=== PATIENT | male | born 1950 | race Hispanic/Latino ===

== ENCOUNTER 2023-03-04 18:00 | Observation (INO) | payer MEDICARE ==
[~2023-03-04] VITALS: Ht 170.2 cm; Wt 82.7 kg
[2023-03-04 13:46] VITALS: BP 145/66; PULSE 70; RESP 15
[2023-03-04 14:01] LABS: BASOPHILS # (AUTO) 0.04 K/uL (0.00-0.20); BASOPHILS % (AUTO) 0.5 % (0.0-5.0); EOSINOPHILS % (AUTO) 6.6 % (0.0-8.0); HEMATOCRIT 29.4 % (42-54); IMMATURE GRANULOCYTE ABSOLUTE 0.07 K/uL (0-1); LYMPHOCYTES # (AUTO) 1.8 K/uL (1.0-4.8); LYMPHOCYTES % (AUTO) 23.5 % (21.0-51.0); MEAN CORPUSCULAR HEMOGLOBIN 27.8 pg (27.0-33.0); MEAN CORPUSCULAR HGB CONC 31.3 g/dL (32.0-36.0); MEAN CORPUSCULAR VOLUME 88.8 fL (79-99); MONOCYTES # (AUTO) 0.7 K/uL (0.1-1.0); MONOCYTES % (AUTO) 8.6 % (3.0-13.0); NEUTROPHILS # (AUTO) 4.5 K/uL (1.8-7.7); NEUTROPHILS % (AUTO) 59.9 % (40.0-77.0); NUCLEATED RED BLOOD CELLS 0.5 % (0.0-0.19); PLATELET COUNT (AUTO) 323 K/uL (130-400); RED BLOOD CELL COUNT(AUTO) 3.31 MIL/uL (4.50-6.20); RED CELL DISTRIBUTION WIDTH 17.1 % (11.0-15.5); WHITE BLOOD COUNT (AUTO) 7.5 K/uL (4.8-10.8)
[2023-03-04 14:15] LABS: CREATININE 2.3 mg/dL (0.5-1.5); POTASSIUM 5.8 mmol/L (3.5-5.1)
[2023-03-04] MEDS ORDERED: SODI650T PO (18:22)
[2023-03-04] MEDS ORDERED: FOLIC ACID PO (18:22)
[2023-03-04] MEDS ORDERED: INSU100I26 SQ (18:22)
[2023-03-04] MEDS ORDERED: HYDR-3420 PO (18:22)
[2023-03-04] MEDS ORDERED: METO-391 PO (18:22)
[2023-03-04] MEDS ORDERED: FOLI1TAB85 PO (18:22)
[2023-03-04] MEDS ORDERED: AMLO-258 PO (18:22)
[2023-03-04] MEDS ORDERED: LISI40TA9 PO (18:22)
[2023-03-04] MEDS ORDERED: PRAV40TA3 PO (18:22)
[2023-03-04] MEDS ORDERED: CART1TAB5 PO (18:25)
[2023-03-04] MEDS ORDERED: MULT1CAP17 PO (18:25)
[2023-03-04] MEDS ORDERED: TURM500T PO (18:25)
[2023-03-04] MEDS ORDERED: LEVO50CA4 PO (18:25)
[2023-03-04] MEDS ORDERED: KRILL OIL PO (18:25)
[2023-03-04] MEDS ORDERED: FURO20TA4 PO (18:25)
[2023-03-04] MEDS ORDERED: CYAN-35 PO (18:25)
[2023-03-04] MEDS ORDERED: GABA-529 PO (18:25)
[2023-03-04] MEDS ORDERED: VITA0.4T20 PO (18:25)
[2023-03-04] MEDS ORDERED: ZINC50TA15 PO (18:25)
[2023-03-09] VITALS (27 sets, daily range): BP systolic 123–155; BP diastolic 38–67; PULSE 61–76; RESP 12–19; O2SAT 98
[2023-03-09] MEDS ORDERED: CEFAZOLIN SODIUM 2 GM VIAL ONE (06:07)
[2023-03-09] MEDS ORDERED: 0.9%NACL 1000ML 1,000 ML IV ONE (06:07)
[2023-03-09 06:40] LABS: POTASSIUM 5.3 mmol/L (3.5-5.1)
[2023-03-09] MEDS ORDERED: 0.9%NACL 100ML 48.45 ML, ROPIVACAINE 0.5% 5MG/ML 30ML 246.25 MG, KETOROLAC TROMETHAMINE... IV PRN ×5 (07:30)
[2023-03-09] MEDS ORDERED: TRANEXAMIC ACID 1000MG/10ML ONE (09:36)
[2023-03-09] MEDS ORDERED: GENTAMICIN SULFATE 80 MG/2 ML VIAL ONE (09:36)
[2023-03-09] MEDS ORDERED: CEFAZOLIN SODIUM 1 GM VIAL ONE (09:36)
[2023-03-09] MEDS ORDERED: CLOP75TA32 PO (09:56)
[2023-03-09] MEDS ORDERED: LIDOCAINE PF 100MG/5ML (2%) SYRINGE 5ML ONE (10:17)
[2023-03-09] MEDS ORDERED: MIDAZOLAM HCL 1 MG/ML 2ML VIAL ONE (10:18)
[2023-03-09] MEDS ORDERED: FENTANYL CITRATE PF 50 MCG/1 ML 2ML VIAL ONE (10:18)
[2023-03-09] MEDS ORDERED: PROPOFOL 10 MG/ML 20ML VIAL IV ONE ×3 (10:18→11:28)
[2023-03-09] MEDS ORDERED: CEFAZOLIN SODIUM 2 GM VIAL IVPB ONE ×2 (10:36→10:37)
[2023-03-09] MEDS ORDERED: PHENYLEPHRINE HCL 10 MG/ML 1ML VIAL IV ONE (10:36)
[2023-03-09] MEDS ORDERED: TRANEXAMIC ACID 1000MG/10ML IV ONE (10:39)
[2023-03-09] MEDS ORDERED: DEXAMETHASONE SOD PHOSPHATE 10MG/ML 1ML VIAL ONE (11:01)
[2023-03-09] MEDS ORDERED: ONDANSETRON 4MG INJ ONE (11:01)
[2023-03-09] MEDS: 0.9%NACL 1000ML 1,000 ML IV SCH (14:29)
[2023-03-09] MEDS ORDERED: ONDANSETRON 4MG INJ IVP PRN (14:30)
[2023-03-09] MEDS ORDERED: DIPHENOXYLATE HCL/ATROPINE 2.5/0.025 MG TAB PO PRN (14:30)
[2023-03-09] MEDS ORDERED: WARFARIN SODIUM 7.5 MG TAB PO SCH (14:30)
[2023-03-09] MEDS ORDERED: ACETAMINOPHEN 325 MG TAB PO SCH (14:30)
[2023-03-09] MEDS ORDERED: HYDROMORPHONE PCA 10 MG/50 ML 50 ML IV PRN (14:30)
[2023-03-09] MEDS ORDERED: MAG/ALUM/SIMETH 30 ML UDCUP PO PRN (14:30)
[2023-03-09] MEDS ORDERED: DIPHENHYDRAMINE HCL 25 MG CAPSULE PO SCH (14:30)
[2023-03-09] MEDS ORDERED: BENZOCAINE/MENTH/CETYLPYRD CL 1 EACH LOZENGE MM PRN (14:30)
[2023-03-09] MEDS ORDERED: ACETAMINOPHEN 325 MG TAB PO PRN ×2 (14:30)
[2023-03-09] MEDS ORDERED: DIPHENHYDRAMINE HCL 25 MG CAPSULE PO PRN (14:30)
[2023-03-09] MEDS ORDERED: LACTULOSE 20 GM/30 ML UDCUP PO PRN (14:30)
[2023-03-09] MEDS ORDERED: CEFAZOLIN SODIUM 2 GM VIAL IVPB SCH ×2 (14:30→17:30)
[2023-03-09] MEDS: TRAMADOL HCL 50 MG TABLET PO PRN (14:33)
[2023-03-09] MEDS: CEFAZOLIN SODIUM 3 GM in DEXTROSE 5%-WATER 100 ML IVPB SCH (18:39)
[2023-03-09] MEDS: INSULIN GLARGINE 100 UNITS/ML 10 ML VIAL SQ SCH (20:30)
[2023-03-09] MEDS: HYDRALAZINE HCL 10 MG TABLET PO SCH (20:31)
[2023-03-09] MEDS: GABAPENTIN 100 MG CAPSULE PO SCH (20:31)
[2023-03-09] MEDS: FUROSEMIDE 20 MG TABLET PO SCH (20:31)
[2023-03-09] MEDS: ATORVASTATIN 10 MG TABLET PO SCH (20:31)
[2023-03-09] MEDS: SODIUM BICARBONATE 650 MG TAB PO SCH (20:31)
[2023-03-09] MEDS ORDERED: [UNRECOGNIZED DRUG - OTHER] SQ SCH (21:00)
[2023-03-09] MEDS ORDERED: INSULIN GLARGINE HUM REC ANLOG SQ SCH (21:00)
[2023-03-09] MEDS ORDERED: NON-FORMULARY MEDICATION 1 EACH (Pravastatin Sodium 40 MG) PO SCH (21:00)
[2023-03-10] MEDS: 0.9%NACL 1000ML 1,000 ML IV SCH ×3 (00:27→20:29)
[2023-03-10] MEDS: CEFAZOLIN SODIUM 3 GM in DEXTROSE 5%-WATER 100 ML IVPB SCH (02:00)
[2023-03-10 03:50] LABS: HEMATOCRIT 25.5 % (42-54); MEAN CORPUSCULAR HEMOGLOBIN 27.6 pg (27.0-33.0); MEAN CORPUSCULAR VOLUME 89.2 fL (79-99); PLATELET COUNT (AUTO) 195 K/uL (130-400); RED BLOOD CELL COUNT(AUTO) 2.86 MIL/uL (4.50-6.20); RED CELL DISTRIBUTION WIDTH 17.3 % (11.0-15.5); WHITE BLOOD COUNT (AUTO) 8.5 K/uL (4.8-10.8)
[2023-03-10 04:05] LABS: INR 1.09 (0.85-1.15); PROTHROMBIN TIME 12.6 SEC (9.6-11.6)
[2023-03-10 04:07] LABS: CREATININE 2.1 mg/dL (0.5-1.5); POTASSIUM 5.8 mmol/L (3.5-5.1)
[2023-03-10 04:09] VITALS: BP 139/55; PULSE 69; RESP 18
[2023-03-10] MEDS: LEVOTHYROXINE 50 MCG TABLET PO SCH (05:33)
[2023-03-10] MEDS ORDERED: NON-FORMULARY MEDICATION 1 EACH (Levothyroxine Sodium (Levothyroxine) 50 MCG) PO SCH (07:30)
[2023-03-10 07:57] VITALS: BP 138/58; PULSE 62; RESP 19
[2023-03-10 08:20] VITALS: O2SAT 98
[2023-03-10] MEDS: AMLODIPINE 5 MG TAB PO SCH (09:00)
[2023-03-10] MEDS: TURMERIC ROOT EXTRACT 1000 MG PO SCH (09:00)
[2023-03-10] MEDS: HYDRALAZINE HCL 10 MG TABLET PO SCH ×3 (09:00→20:28)
[2023-03-10] MEDS ORDERED: NON-FORMULARY MEDICATION 1 EACH (Amlodipine Besylate 10 MG) PO SCH (09:00)
[2023-03-10] MEDS: SODIUM BICARBONATE 650 MG TAB PO SCH ×3 (10:44→20:28)
[2023-03-10] MEDS: METOPROLOL SUCCINATE 50 MG TAB.SR.24H PO SCH (10:44)
[2023-03-10] MEDS: GABAPENTIN 100 MG CAPSULE PO SCH ×3 (10:45→20:28)
[2023-03-10] MEDS: CLOPIDOGREL 75MG TAB PO SCH (10:45)
[2023-03-10 11:02] LABS: ALBUMIN 3.2 g/dL (3.5-5.0); BILIRUBIN,TOTAL 0.4 mg/dL (0.2-1.0); MAGNESIUM 1.9 mg/dL (1.80-2.40); TOTAL PROTEIN, SERUM 6.1 g/dL (6.0-8.3)
[2023-03-10 11:29] VITALS: BP 121/59; PULSE 70; RESP 19
[2023-03-10] MEDS: INSULIN HUMULIN R 100 UNIT/ML 3ML SQ SCH ×3 (11:50→20:29)
[2023-03-10] MEDS: LISINOPRIL 40 MG TABLET PO SCH (12:00)
[2023-03-10 12:01] LABS: ABG OXYGEN SATURATION 98.7 % (95.0-99.0); BASE EXCESS,VENOUS BLOOD GAS -9.9 (-2.0-3.0); HCO3,VENOUS BLOOD GAS 14.4 (21.0-28.0); PCO2,VENOUS BLOOD GAS 28 (32-45); PH,VENOUS BLOOD GAS 7.324 (7.350-7.450); PO2,VENOUS BLOOD GAS 143.7 mmHg (35.0-45.0)
[2023-03-10] MEDS ORDERED: SODIUM BICARB 50MEQ 50ML VIAL IV ONE (13:00)
[2023-03-10] MEDS: TRAMADOL HCL 50 MG TABLET PO PRN (13:32)
[2023-03-10 15:20] VITALS: BP 165/56; PULSE 71; RESP 19
[2023-03-10] MEDS ORDERED: HYDRALAZINE 20MG/ML VIAL IV PRN (16:00)
[2023-03-10 18:14] LABS: HEMATOCRIT 29.1 % (42-54); MEAN CORPUSCULAR HEMOGLOBIN 28.1 pg (27.0-33.0); MEAN CORPUSCULAR HGB CONC 31.3 g/dL (32.0-36.0); MEAN CORPUSCULAR VOLUME 89.8 fL (79-99); RED BLOOD CELL COUNT(AUTO) 3.24 MIL/uL (4.50-6.20); RED CELL DISTRIBUTION WIDTH 17.2 % (11.0-15.5); WHITE BLOOD COUNT (AUTO) 8.1 K/uL (4.8-10.8)
[2023-03-10 18:34] LABS: CREATININE 2.3 mg/dL (0.5-1.5); POTASSIUM 5.7 mmol/L (3.5-5.1)
[2023-03-10 18:40] LABS: ALBUMIN 3.2 g/dL (3.5-5.0); BILIRUBIN,TOTAL 1.2 mg/dL (0.2-1.0); MAGNESIUM 1.9 mg/dL (1.80-2.40); TOTAL PROTEIN, SERUM 6.3 g/dL (6.0-8.3)
[2023-03-10 20:00] VITALS: BP 139/48; PULSE 82; RESP 20; O2SAT 97
[2023-03-10] MEDS: FUROSEMIDE 20 MG TABLET PO SCH (20:28)
[2023-03-10] MEDS: ATORVASTATIN 10 MG TABLET PO SCH (20:28)
[2023-03-10] MEDS ORDERED: SODIUM ZIRCONIUM CYCLOSILICATE 5 GM POWD.PACK PO SCH (20:30)
[2023-03-10] MEDS: INSULIN GLARGINE 100 UNITS/ML 10 ML VIAL SQ SCH (20:33)
[2023-03-11] VITALS: BP 137/57; PULSE 87; RESP 18
[2023-03-11 03:39] LABS: BASOPHILS # (AUTO) 0.01 K/uL (0.00-0.20); BASOPHILS % (AUTO) 0.2 % (0.0-5.0); EOSINOPHILS # (AUTO) 0.13 K/uL (0.00-0.70); EOSINOPHILS % (AUTO) 2.1 % (0.0-8.0); HEMATOCRIT 28.1 % (42-54); IMMATURE GRANULOCYTE ABSOLUTE 0.02 K/uL (0-1); LYMPHOCYTES # (AUTO) 0.9 K/uL (1.0-4.8); LYMPHOCYTES % (AUTO) 14.9 % (21.0-51.0); MEAN CORPUSCULAR HEMOGLOBIN 28.1 pg (27.0-33.0); MEAN CORPUSCULAR HGB CONC 31.7 g/dL (32.0-36.0); MEAN CORPUSCULAR VOLUME 88.6 fL (79-99); MONOCYTES # (AUTO) 0.9 K/uL (0.1-1.0); MONOCYTES % (AUTO) 14.8 % (3.0-13.0); NEUTROPHILS # (AUTO) 4.2 K/uL (1.8-7.7); NEUTROPHILS % (AUTO) 67.7 % (40.0-77.0); PLATELET COUNT (AUTO) 153 K/uL (130-400); RED BLOOD CELL COUNT(AUTO) 3.17 MIL/uL (4.50-6.20); RED CELL DISTRIBUTION WIDTH 17.4 % (11.0-15.5); WHITE BLOOD COUNT (AUTO) 6.2 K/uL (4.8-10.8)
[2023-03-11 03:52] LABS: BILIRUBIN,TOTAL 0.9 mg/dL (0.2-1.0); CREATININE 1.9 mg/dL (0.5-1.5); MAGNESIUM 1.7 mg/dL (1.80-2.40); POTASSIUM 4.7 mmol/L (3.5-5.1)
[2023-03-11 04:00] VITALS: BP 142/40; PULSE 74; RESP 18
[2023-03-11] MEDS: 0.9%NACL 1000ML 1,000 ML IV SCH ×2 (05:03→17:04)
[2023-03-11] MEDS: LEVOTHYROXINE 50 MCG TABLET PO SCH (05:03)
[2023-03-11] MEDS: INSULIN HUMULIN R 100 UNIT/ML 3ML SQ SCH ×4 (05:57→21:22)
[2023-03-11 08:00] VITALS: BP 134/55; PULSE 69; RESP 19; O2SAT 99
[2023-03-11] MEDS: TURMERIC ROOT EXTRACT 1000 MG PO SCH (09:00)
[2023-03-11] MEDS: SODIUM BICARBONATE 650 MG TAB PO SCH ×3 (09:18→20:31)
[2023-03-11] MEDS: AMLODIPINE 5 MG TAB PO SCH (09:18)
[2023-03-11] MEDS: METOPROLOL SUCCINATE 50 MG TAB.SR.24H PO SCH (09:18)
[2023-03-11] MEDS: CLOPIDOGREL 75MG TAB PO SCH (09:18)
[2023-03-11] MEDS: TRAMADOL HCL 50 MG TABLET PO PRN (09:19)
[2023-03-11] MEDS: HYDRALAZINE HCL 10 MG TABLET PO SCH ×3 (09:19→20:32)
[2023-03-11] MEDS: GABAPENTIN 100 MG CAPSULE PO SCH ×3 (09:20→20:31)
[2023-03-11 12:00] VITALS: BP 139/48; PULSE 69; RESP 19
[2023-03-11] MEDS ORDERED: MAGNESIUM 2GM PREMIX 50ML 50 ML IV PRN (12:00)
[2023-03-11] MEDS: LISINOPRIL 40 MG TABLET PO SCH (12:22)
[2023-03-11 16:00] VITALS: BP 161/62; PULSE 74; RESP 19
[2023-03-11] MEDS ORDERED: MAGNESIUM 2GM PREMIX 50ML 50 ML IV SCH (16:00)
[2023-03-11 16:10] LABS: ABG BASE EXCESS -5.5 mmol/L (-2.0-3.0); ABG HCO3 19.3 mmol/L (21.0-28.0); ABG OXYGEN SATURATION 88.5 % (95.0-99.0); ABG PCO2 36 mmHg (35-48); ABG PH 7.351 (7.35-7.450); PO2, ARTERIAL BG 56.7 mmHg (83.0-108.0); VENT MODE, BG RA (ROOM AIR)
[2023-03-11 20:00] VITALS: BP 140/50; PULSE 75; RESP 20
[2023-03-11] MEDS: FUROSEMIDE 20 MG TABLET PO SCH (20:31)
[2023-03-11] MEDS: ATORVASTATIN 10 MG TABLET PO SCH (20:31)
[2023-03-11] MEDS: INSULIN GLARGINE 100 UNITS/ML 10 ML VIAL SQ SCH (21:23)
[2023-03-12] VITALS: BP 155/56; PULSE 79; RESP 20
[2023-03-12] MEDS: 0.9%NACL 1000ML 1,000 ML IV SCH (02:30)
[2023-03-12 04:00] VITALS: BP 145/53; PULSE 75; RESP 18
[2023-03-12 05:30] LABS: BASOPHILS # (AUTO) 0.02 K/uL (0.00-0.20); BASOPHILS % (AUTO) 0.3 % (0.0-5.0); EOSINOPHILS # (AUTO) 0.25 K/uL (0.00-0.70); EOSINOPHILS % (AUTO) 4.2 % (0.0-8.0); HEMATOCRIT 25.7 % (42-54); IMMATURE GRANULOCYTE ABSOLUTE 0.03 K/uL (0-1); LYMPHOCYTES # (AUTO) 0.8 K/uL (1.0-4.8); LYMPHOCYTES % (AUTO) 13.8 % (21.0-51.0); MEAN CORPUSCULAR HEMOGLOBIN 27.9 pg (27.0-33.0); MEAN CORPUSCULAR HGB CONC 30.7 g/dL (32.0-36.0); MEAN CORPUSCULAR VOLUME 90.8 fL (79-99); MONOCYTES # (AUTO) 0.8 K/uL (0.1-1.0); MONOCYTES % (AUTO) 13.3 % (3.0-13.0); NEUTROPHILS % (AUTO) 67.9 % (40.0-77.0); PLATELET COUNT (AUTO) 144 K/uL (130-400); RED BLOOD CELL COUNT(AUTO) 2.83 MIL/uL (4.50-6.20); RED CELL DISTRIBUTION WIDTH 17.1 % (11.0-15.5); WHITE BLOOD COUNT (AUTO) 5.9 K/uL (4.8-10.8)
[2023-03-12] MEDS: LEVOTHYROXINE 50 MCG TABLET PO SCH (05:37)
[2023-03-12 05:45] LABS: INR 1.05 (0.85-1.15); PROTHROMBIN TIME 12.1 SEC (9.6-11.6)
[2023-03-12 05:47] LABS: ALBUMIN 2.7 g/dL (3.5-5.0); BILIRUBIN,TOTAL 0.9 mg/dL (0.2-1.0); CREATININE 1.6 mg/dL (0.5-1.5); POTASSIUM 4.9 mmol/L (3.5-5.1); TOTAL PROTEIN, SERUM 5.8 g/dL (6.0-8.3)
[2023-03-12] MEDS: INSULIN HUMULIN R 100 UNIT/ML 3ML SQ SCH ×2 (06:11→11:30)
[2023-03-12 08:00] VITALS: BP 138/50; PULSE 75; RESP 18; O2SAT 100
[2023-03-12] MEDS: TURMERIC ROOT EXTRACT 1000 MG PO SCH (09:00)
[2023-03-12] MEDS: CLOPIDOGREL 75MG TAB PO SCH (09:02)
[2023-03-12] MEDS: HYDRALAZINE HCL 10 MG TABLET PO SCH ×2 (09:02→14:33)
[2023-03-12] MEDS: METOPROLOL SUCCINATE 50 MG TAB.SR.24H PO SCH (09:02)
[2023-03-12] MEDS: AMLODIPINE 5 MG TAB PO SCH (09:02)
[2023-03-12] MEDS: SODIUM BICARBONATE 650 MG TAB PO SCH ×2 (09:03→14:33)
[2023-03-12] MEDS: GABAPENTIN 100 MG CAPSULE PO SCH ×2 (09:03→14:33)
[2023-03-12] MEDS: TRAMADOL HCL 50 MG TABLET PO PRN (09:06)
[2023-03-12 12:00] VITALS: BP 148/50; PULSE 71; RESP 18
[2023-03-12] MEDS: LISINOPRIL 40 MG TABLET PO SCH (12:23)
[2023-03-12 12:55] LABS: BASOPHILS # (AUTO) 0.02 K/uL (0.00-0.20); BASOPHILS % (AUTO) 0.3 % (0.0-5.0); EOSINOPHILS # (AUTO) 0.34 K/uL (0.00-0.70); EOSINOPHILS % (AUTO) 4.9 % (0.0-8.0); HEMATOCRIT 27.7 % (42-54); IMMATURE GRANULOCYTE ABSOLUTE 0.02 K/uL (0-1); LYMPHOCYTES # (AUTO) 0.9 K/uL (1.0-4.8); LYMPHOCYTES % (AUTO) 12.9 % (21.0-51.0); MEAN CORPUSCULAR HEMOGLOBIN 28.2 pg (27.0-33.0); MEAN CORPUSCULAR HGB CONC 31.4 g/dL (32.0-36.0); MEAN CORPUSCULAR VOLUME 89.6 fL (79-99); MONOCYTES # (AUTO) 0.8 K/uL (0.1-1.0); MONOCYTES % (AUTO) 12.1 % (3.0-13.0); NEUTROPHILS # (AUTO) 4.8 K/uL (1.8-7.7); NEUTROPHILS % (AUTO) 69.5 % (40.0-77.0); PLATELET COUNT (AUTO) 147 K/uL (130-400); RED BLOOD CELL COUNT(AUTO) 3.09 MIL/uL (4.50-6.20)
== END 2023-03-12 17:25 | disposition home or self-care (01) ==
LOC: DAHIP 03-09 05:12 → 4DH 03-09 13:50
PROVIDERS: ADMIT Orthopaedic Surgery; ATTEND Orthopaedic Surgery
DX: M17.11 Unilateral primary osteoarthritis, right knee (principal); D62 Acute posthemorrhagic anemia; I12.9 Hypertensive chronic kidney disease with stage 1 through stage 4 chronic kidney disease, or unspecified chronic kidney disease; E11.22 Type 2 diabetes mellitus with diabetic chronic kidney disease; N18.30 Chronic kidney disease, stage 3 unspecified; E11.610 Type 2 diabetes mellitus with diabetic neuropathic arthropathy; E44.1 Mild protein-calorie malnutrition; E87.1 Hypo-osmolality and hyponatremia; E87.20 Acidosis, unspecified; E87.5 Hyperkalemia; Z79.02 Long term (current) use of antithrombotics/antiplatelets; Z86.718 Personal history of other venous thrombosis and embolism; Z96.651 Presence of right artificial knee joint; Z79.899 Other long term (current) drug therapy
CPT/HCPCS: 80048 ×2; 85025 ×4; 36415 ×5; 71045; 93005; 87641; 96365; 96366 ×4; 96368; 27447; 82948 ×14; 97161; 97012; 97530 ×12; 80053 ×4; 36430; 96375; 83735 ×4; 82803 ×2; 85027 ×2; 85610 ×2; 86850; 86900; 86901; 86923; 76770; 97116 ×6; 96367; 36600; A6260; G0378 ×72; G0379; A4510; A4663; J7120; A4215 ×2; A4649 ×4; J3010; J0690 ×5; J3490 ×3; J1170; J1100; J7030 ×2; J2001; J1580; J2250; J7060; J2704 ×3; J2405 ×2; J2371; A6223; C1763 ×2; C1776; A5120; A4223; A4222; A4221; A6450; J1815 ×3; P9016; J3475

== ENCOUNTER → 2023-09-11 | Outpatient (CLI) | payer MEDICARE ==
[~2023-09-11] MED LIST: AMLO-258 PO; APIX5TAB PO; CART1TAB5 PO; CEFD300C3 PO; CLOP75TA32 PO; CYAN-35 PO; FOLI1TAB85 PO; FOLIC ACID PO; FURO20TA4 PO; GABA-529 PO; HYDR-3420 PO; INSU100I26 SQ; KRILL OIL PO; LEVO50CA4 PO; LISI40TA9 PO; METH4TAB3 PO; METO-391 PO; MULT1CAP17 PO; NIRM1TAB7 PO; PRAV40TA3 PO; SODI650T PO; TURM500T PO; VITA0.4T20 PO; ZINC50TA15 PO
[2023-09-11] MEDS: REGADENOSON 0.4 MG/5 ML PF SYG IVP SCH (10:57)
== END | disposition home or self-care (01) ==
LOC: RAH 08:37
PROVIDERS: ATTEND Student in an Organized Health Care Education/Training Program
DX: R06.02 Shortness of breath (principal); R06.00 Dyspnea, unspecified
CPT/HCPCS: 78452; 96374; 93017; J2785; A9500 ×2

== ENCOUNTER → 2023-11-02 | Outpatient (CLI) | payer MEDICARE | END | disposition home or self-care (01) | LOC: SHCH 08:31 | PROVIDERS: ATTEND Student in an Organized Health Care Education/Training Program | DX: I71.40 Abdominal aortic aneurysm, without rupture, unspecified (principal) | CPT/HCPCS: 93978 ==

== ENCOUNTER → 2024-04-06 | Outpatient (CLI) | payer MEDICARE | END | disposition home or self-care (01) | LOC: SHCH 14:00 | PROVIDERS: ATTEND Student in an Organized Health Care Education/Training Program | DX: I73.9 Peripheral vascular disease, unspecified (principal); R09.89 Other specified symptoms and signs involving the circulatory and respiratory systems | CPT/HCPCS: 93880; 93925 ==